=== PATIENT | female | born 1995 | race Caucasian/White ===

== ENCOUNTER 2019-09-23 15:15 | Emergency (ER) | payer BC ==
--- NOTE | 2019-09-23 15:44 | EDM.PDOC ---
ED HPI GENERAL MEDICAL PROBLEM - General Chief Complaint: Lower Extremity Injury/Pain Stated Complaint: BUMP ON RIGHT LEG Time Seen by Provider: 09/23/19 15:24 Source of Information: Reports: Patient History Limitations: Reports: No Limitations - History of Present Illness INITIAL COMMENTS - FREE TEXT/NARRATIVE: Patient is a 24-year-old female who presents with complaints of a "lump" her right lower medial leg. Patient states that she has noticed there for 2 weeks. It is tender to palpation. She has no history of blood clots herself, however her father and her grandmother have both had DVTs. Patient states shortly before this lump developed she did drive home on a 13-hour car ride with no stops. Patient has no chronic health problems herself, however she states she has had bad varicose veins for quite a while. She is not on control. She has had no swelling to the lower extremity. Right Lower Leg Pain Score (Numeric/FACES): 2 - Related Data Allergies Allergy/AdvReac Type Severity Reaction Status Date / Time morphine Allergy Rash Verified 09/23/19 15:23 Home Meds: Home Meds . [No Known Home Meds] 09/23/19 [History] Past Medical History - Past Surgical History HEENT Surgical History: Reports: Tonsillectomy Social & Family History - Tobacco Use Smoking Status *Q: Never Smoker - Caffeine Use Caffeine Use: Reports: None - Recreational Drug Use Recreational Drug Use: No Review of Systems - Review of Systems Review Of Systems: Comprehensive ROS is negative, except as noted in HPI. ED EXAM, GENERAL - Physical Exam Exam: See Below Exam Limited By: No Limitations General Appearance: Alert, WD/WN, No Apparent Distress Respiratory/Chest: No Respiratory Distress, Lungs Clear, Normal Breath Sounds, No Accessory Muscle Use, Chest Non-Tender Cardiovascular: Normal Peripheral Pulses, Regular Rate, Rhythm, No Edema, No Gallop, No JVD, No Murmur, No Rub Extremities: Normal Inspection, Normal Range of Motion, No Pedal Edema, Normal Capillary Refill, Other (tender, palpable, firm aprox 2 cm nodule to the right medial lower leg. Varicose veins present surrounding the nodule.) Neurological: Alert, Oriented, CN II-XII Intact, Normal Cognition, Normal Gait, Normal Reflexes, No Motor/Sensory Deficits Psychiatric: Normal Affect, Normal Mood Skin Exam: Warm, Dry, Intact, Normal Color, No Rash Course - Vital Signs Last Recorded V/S: Last Vital Signs Temp 99.1 F 09/23/19 15:23 Pulse 102 H 09/23/19 15:23 Resp 16 09/23/19 15:23 BP 155/100 H 09/23/19 15:23 Pulse Ox 100 09/23/19 15:23 - Orders/Labs/Meds Orders: Active Orders 24 hr Category Date Time Status Influenza Vaccine Charge [RC] .DISCHARGE Care 09/23/19 15:33 Active Meds: Medications Discontinued Medications Generic Name Dose Route Start Last Admin Trade Name Freq PRN Reason Stop Dose Admin Influenza Virus Vaccine 60 mcg 09/23/19 15:45 Fluzone Quad [id number] Syringe IM 09/23/19 15:46 .ONCE ONE - Re-Assessments/Exams Free Text/Narrative Re-Assessment/Exam: 09/23/19 16:57 Venous Doppler ultrasound was negative for any DVT. Discussed with the patient it may be inflammation of her varicose vein. Recommended that she elevate her lower extremities and use compression socks as needed. Discharge instructions as documented. Departure - Departure Time of Disposition: 16:59 Disposition: Home, Self-Care 01 Condition: Good Clinical Impression: Varicose vein of leg Qualifiers: Varicose vein complication: unspecified Laterality: right Qualified Code(s): I83.91 - Asymptomatic varicose veins of right lower extremity - Discharge Information *PRESCRIPTION DRUG MONITORING PROGRAM REVIEWED*: No *COPY OF PRESCRIPTION DRUG MONITORING REPORT IN PATIENT RADHA: No Instructions: Varicose Veins Referrals: PCP,None [Primary Care Provider] - Forms: ED Department Discharge Additional Instructions: You were seen in the emergency department today for a bump and tenderness to your right lower leg. An ultrasound was done and it showed no evidence of a blood clot. It is likely that there is some inflammation within the varicose in that area. Recommend that you ice and elevate the area as needed. You may also use compression stockings. If your symptoms should worsen, please return to the emergency department or follow-up with a primary care provider. Sepsis Event Note - Evaluation Sepsis Screening Result: No Definite Risk - Focused Exam Vital Signs: Vital Signs Temp Pulse Resp BP Pulse Ox 09/23/19 15:23 99.1 F 102 H 16 155/100 H 100 Date Exam was Performed: 09/23/19 Time Exam was Performed: 17:01 - My Orders Last 24 Hours: My Active Orders 09/23/19 15:33 Influenza Vaccine Charge [RC] .DISCHARGE - Assessment/Plan Last 24 Hours: My Active Orders 09/23/19 15:33 Influenza Vaccine Charge [RC] .DISCHARGE
[2019-09-23] MEDS ORDERED: FLU Vacc QS2019-20(6MOS+)/PF 60 MCG/0.5 ML SYRINGE IM ONE (15:45)
--- NOTE | 2019-09-23 16:35 | US ---
Right lower extremity deep venous ultrasound: Duplex and color Doppler evaluation was obtained of the right common femoral, proximal greater saphenous, superficial femoral, popliteal, posterior tibial and peroneal veins. Findings: Normal phasic flow, augmentation and compression is seen. Left common femoral vein is also patent. Impression: 1. No evidence of deep venous thrombosis with the right lower extremity or left common femoral vein. Diagnostic code #1 This report was dictated in [place] Standard Time
== END 2019-09-23 17:18 | disposition home or self-care (01) ==
LOC: JD.ED 15:15
DX: I83.91 Asymptomatic varicose veins of right lower extremity (principal); Z88.5 Allergy status to narcotic agent; Z23 Encounter for immunization
CPT/HCPCS: 90686; 93971-26-RT; 93971-RT; 99282; 99283-25; G0008